=== PATIENT | female | born 1965 | race Caucasian/White ===

== ENCOUNTER → 2019-02-14 | Outpatient (REF) | LOC: M LAB LCGH 09:16 | PROVIDERS: ATTEND Surgery | DX: K35.80 Unspecified acute appendicitis (principal) ==

== ENCOUNTER → 2020-10-25 | Outpatient (CLI) | payer MEDICARE, BC, OTHER ==
[~2020-10-25] MED LIST: E-Z-GAS II EFFERVESCENT PACKET (SODIUM BICARB./CITRIC ACID/SIMETHICONE) As Ordered ONE; E-Z-HD 98% w/w 340GM SUSP BTL As Ordered ONE; E-Z-PAQUE 96% w/w SUSP 176GM BTL As Ordered ONE; ISOVUE-370 76% 100ML VIAL As Ordered ONE
--- NOTE | 2020-10-25 10:23 | REPVR ---
PROCEDURE INFORMATION: Exam: CT Neck With Contrast Exam date and time: 10/25/2020 9:52 AM Age: 55 years old Clinical indication: Pain; Other: Lymph nodes; Additional info: Enlarged lymph nodes, dysphagia TECHNIQUE: Imaging protocol: Computed tomography images of the neck with contrast. Radiation optimization: All CT scans at this facility use at least one of these dose optimization techniques: automated exposure control; mA and/or kV adjustment per patient size (includes targeted exams where dose is matched to clinical indication); or iterative reconstruction. Contrast material: ISOVUE 370; Contrast volume: 75 ml; Contrast route: INTRAVENOUS (IV); COMPARISON: CT ST NECK W/ CONTRAST - OUTSIDE PRIOR 05/24/2020 12:00 AM FINDINGS: Nasopharynx: Unremarkable. Oropharynx: Unremarkable. No significant tonsillar enlargement. Hypopharynx: Unremarkable. Larynx: Unremarkable. Normal epiglottis. Retropharyngeal space: Unremarkable. Submandibular/Parotid glands: Normal. Glands are normal in size. Thyroid: The thyroid gland is diffusely enlarged and heterogeneous, suggestive of goiter. This appears unchanged as compared to preceding examination. Lymph nodes: There are prominent jugulodigastric lymph nodes bilaterally, measuring up to 1.3 cm. There are 2 closely opposed left inferior and posterior triangle lymph nodes measuring up to 7 mm in diameter. These appear unchanged as compared to preceding examination. Trachea: Visualized trachea is unremarkable. Lungs: Unremarkable as visualized. Bones/joints: Unremarkable. No acute fracture. Soft tissues: Unremarkable. No significant soft tissue swelling. IMPRESSION: Stable prominent jugulodigastric and left posterior and inferior cervical lymph nodes. These on are enlarged by CT criteria, but continued clinical monitoring is recommended. No new or progressive lymphadenopathy. Electronically signed by: Ita Sandhu On 10/25/2020 10:23:17 AM
--- NOTE | 2020-10-25 15:26 | REP ---
INDICATION: ENLARGED LYMPHNODES, DYSPHAGIA. COMPARISON: None TECHNIQUE: This procedure was performed by Zeny Elizabeth [facility], under the direct supervision of Dr. Blandon. Images were reviewed with Dr. Blandon prior to dictation. Liquid barium and gas producing crystals were given in the erect position, as well as liquid barium in the prone oblique position in order to perform a double contrast esophagram examination. FINDINGS: A single view PA chest x-ray is submitted as a promotions manager film. The superior mediastinal structures are midline. The heart size is within normal limits. The lungs are clear. The oral and pharyngeal stages of deglutition were unremarkable. Esophageal transport is prompt and efficient and there is no evidence of esophagitis, stricture, or mucosal ring. There is evidence of a small hiatal hernia. Gastroesophageal reflux was visualized to the level of the abel. IMPRESSION: 1. Small hiatal hernia. 2. Gastroesophageal reflux to the level of abel. 0.3 minutes of fluoroscopy time was utilized for this procedure. Some fluoroscopic images are performed with last image hold technology. These images require no additional radiation. <Electronically signed by Zeny Elizabeth > 10/25/20 [id number] <Electronically signed by James Blandon > 10/25/20 [id number]
== END ==
LOC: M RAD 09:30
PROVIDERS: ATTEND Otolaryngology
DX: R13.10 Dysphagia, unspecified (principal); R59.0 Localized enlarged lymph nodes
CPT/HCPCS: 70491; 74220; Q9967

== ENCOUNTER → 2020-11-23 | Outpatient (CLI) | payer MEDICARE, BC, OTHER ==
[~2020-11-23] MED LIST changes: +AMIT75TA PO; +ATOR1TAB19 PO; -E-Z-GAS II EFFERVESCENT PACKET (SODIUM BICARB./CITRIC ACID/SIMETHICONE) As Ordered ONE; -E-Z-HD 98% w/w 340GM SUSP BTL As Ordered ONE; -E-Z-PAQUE 96% w/w SUSP 176GM BTL As Ordered ONE; +HYDR100C PO; -ISOVUE-370 76% 100ML VIAL As Ordered ONE; +LEVO50TA5 PO; +LIDOCAINE 1% MDV 20ML VIAL As Ordered ONE; +OMEP40CA4 PO; +SODIUM BICARBONATE 8.4% INJ 50MEQ 50 ML VIAL As Ordered ONE; +TOPI200T7 PO
[2020-11-23 14:52] VITALS: BP 176/94
== END ==
LOC: M IRPRO 13:14
PROVIDERS: ATTEND Otolaryngology
DX: R59.0 Localized enlarged lymph nodes (principal)